=== PATIENT | male | born 1960 | race Two or more races ===

== ENCOUNTER → 2019-07-24 | Day surgery (SDC) | payer BC, OTHER ==
[~2019-07-24] MED LIST: Lactated Ringers 1,000 ML IV SCH; Lidocaine 1%/Sod Bicarbonate in NS 8.4% 1 ML Syringe IDERM PRN; Sodium Chloride 0.9% 10 ML Syringe FLUSH PRN
== END | disposition home or self-care (01) ==
LOC: MERGE 07:14 → JD.SDS 07:14
PROVIDERS: ATTEND Surgery
DX: Z01.810 Encounter for preprocedural cardiovascular examination (principal)
CPT/HCPCS: 93005